=== PATIENT | female | born 1990 | race American Indian/Alaskan Native ===

== ENCOUNTER 2016-08-26 19:26 | Emergency (ER) | payer MEDICAID ==
[2016-08-26] MEDS ORDERED: TYLENOL PO ONE (20:03)
[2016-08-26 20:27] LABS: Basophils % (Auto) 0.9 % (0.0-1.8); Hematocrit 26.8 % (30.3-42.9); Mean Corpuscular HGB Conc 30 % (30-34); Platelet Count 477 K/mm3 (140-440); Red Blood Count 4.37 M/mm3 (3.65-5.03); White Blood Count 7.7 K/mm3 (4.5-11.0)
[2016-08-26 20:28] LABS: Mean Corpuscular Hemoglobin 18 pg (28-32); Mean Corpuscular Volume 61 fl (79-97); Red Cell Distribution Width 20.2 % (13.2-15.2)
[2016-08-26 20:44] LABS: Anion Gap 22 mmol/L; BUN/Creatinine Ratio 17.77; Blood Urea Nitrogen 16 mg/dL (7-17); Calcium 8.7 mg/dL (8.4-10.2); Carbon Dioxide 22 mmol/L (22-30); Chloride 95.4 mmol/L (98-107); Glucose 99 mg/dL (65-100); Potassium 4.1 mmol/L (3.6-5.0); Sodium 135 mmol/L (137-145)
[2016-08-27] MEDS ORDERED: PEPCID IV ONE (06:52)
[2016-08-27] MEDS ORDERED: ZOFRAN IV ONE (06:52)
[2016-08-27] MEDS ORDERED: NACL 0.9% 1000 ML 2,000 ML IV ONE (06:52)
[2016-08-27] MEDS ORDERED: ALUM-MAG HYDROX-SIMETH 200-200-20MG/5ML PO ONE (06:53)
--- NOTE | 2016-08-27 06:54 | Emergency Department Report ---
ED General Adult HPI - General Chief complaint: Chest Pain Stated complaint: CP/VOMITING Time Seen by Provider: 08/27/16 06:44 Source: patient Mode of arrival: Ambulatory Limitations: No Limitations - History of Present Illness Initial comments: This is a 26-year-old female. She is previously unknown to me. LMP August 03. Denies primary care doctor. Reports a past medical history of asthma, chronic anemia secondary to heavy menstruation. The patient presents to the ER with fever, chest pain, nausea and vomiting. Patient found to be febrile here in the emergency room. She did not know that she was experiencing fevers. Her main complaint is chest pain. It is central. It does not radiate to the back, arms and neck. It is associated with nausea and vomiting. Patient reports a few episodes of nonbloody, nonbilious emesis. There is no lower abdominal pain. There are no irritative or obstructive urinary symptoms. There is no leg pain. There is no leg swelling. No recent trips greater than 4 hours. No recent hospital admissions. + cough -: Gradual Location: chest Severity scale (0 -10): 7 Quality: aching Consistency: intermittent Improves with: none Worsens with: none Associated Symptoms: chest pain, cough, fever/chills, nausea/vomiting - Related Data Previous Rx's Medication Instructions Recorded Last Taken Type Vit/Iron Fumarate/FA 1 each PO QDAY #90 tablet 10/20/13 06/05/14 Rx [ Vitamin Tablet] Ferrous Sulfate [Feosol 325 MG tab] 325 mg PO BID #60 tablet 05/10/14 06/05/14 Rx Ferrous Sulfate [Feosol 325 MG tab] 325 mg PO TID #90 tablet 06/06/14 Unknown Rx Ibuprofen [Motrin 800 MG tab] 800 mg PO Q8H PRN #90 tablet 06/06/14 Unknown Rx oxyCODONE /ACETAMINOPHEN [Percocet 1 tab PO Q6HR PRN #30 tablet 06/06/14 Unknown Rx 5/325 mg] ALBUTEROL Inhaler [ProAir HFA 2 puff IH QID PRN #1 inhalation 03/09/15 Unknown Rx Inhaler] Prednisone [predniSONE 10 mg 10 mg PO .TAPER #1 tab.ds.pk 03/09/15 Unknown Rx (6-Day Pack, 21 Tabs)] Ketorolac [Toradol] 10 mg PO Q6H PRN #20 tablet 08/27/16 Unknown Rx Ondansetron [Zofran Odt] 4 mg PO QID PRN #20 tab.rapdis 08/27/16 Unknown Rx Allergies Allergy/AdvReac Type Severity Reaction Status Date / Time shellfish derived Allergy Swelling Verified 10/19/13 18:45 ED Review of Systems ROS: Stated complaint: CP/VOMITING Other details as noted in HPI Constitutional: fever ENT: as per HPI Respiratory: see HPI Cardiovascular: chest pain Gastrointestinal: nausea, vomiting Genitourinary: as per HPI Musculoskeletal: as per HPI Skin: as per HPI Neurological: as per HPI Psychiatric: as per HPI ED Past Medical Hx - Past Medical History Hx Hypertension: No Hx Congestive Heart Failure: No Hx Diabetes: No Hx Deep Vein Thrombosis: No Hx Renal Disease: No Hx Sickle Cell Disease: No Hx Seizures: No Hx Kidney Stones: Yes Hx Asthma: Yes (inhaler prn) Hx COPD: No Hx HIV: No - Surgical History Past Surgical History?: Yes Additional Surgical History: x2 - Social History Smoking Status: Never Smoker Substance Use Type: None - Medications Home Medications: Home Medications Medication Instructions Recorded Confirmed Last Taken Type Vit/Iron Fumarate/FA 1 each PO QDAY #90 tablet 10/20/13 06/05/14 Rx [ Vitamin Tablet] Ferrous Sulfate [Feosol 325 MG tab] 325 mg PO BID #60 tablet 05/10/14 06/05/14 06/05/14 Rx Ferrous Sulfate [Feosol 325 MG tab] 325 mg PO TID #90 tablet 06/06/14 Unknown Rx Ibuprofen [Motrin 800 MG tab] 800 mg PO Q8H PRN #90 tablet 06/06/14 Unknown Rx oxyCODONE /ACETAMINOPHEN [Percocet 1 tab PO Q6HR PRN #30 tablet 06/06/14 Unknown Rx 5/325 mg] ALBUTEROL Inhaler [ProAir HFA 2 puff IH QID PRN #1 inhalation 03/09/15 Unknown Rx Inhaler] Prednisone [predniSONE 10 mg 10 mg PO .TAPER #1 tab.ds.pk 03/09/15 Unknown Rx (6-Day Pack, 21 Tabs)] Ketorolac [Toradol] 10 mg PO Q6H PRN #20 tablet 08/27/16 Unknown Rx Ondansetron [Zofran Odt] 4 mg PO QID PRN #20 tab.rapdis 08/27/16 Unknown Rx ED Physical Exam - General Limitations: No Limitations General appearance: alert, in no apparent distress - Head Head exam: Present: atraumatic, normocephalic - Eye Eye exam: Present: normal appearance, EOMI. Absent: nystagmus - ENT ENT exam: Present: normal exam, normal orophraynx, mucous membranes moist, normal external ear exam - Neck Neck exam: Present: normal inspection, full ROM. Absent: tenderness, meningismus - Respiratory Respiratory exam: Present: normal lung sounds bilaterally. Absent: respiratory distress, wheezes, rales, rhonchi, stridor, chest wall tenderness - Cardiovascular Cardiovascular Exam: Present: normal rhythm, tachycardia, normal heart sounds. Absent: bradycardia, irregular rhythm, systolic murmur, diastolic murmur, rubs, gallop - GI/Abdominal GI/Abdominal exam: Present: soft, normal bowel sounds. Absent: distended, tenderness, guarding, rebound, rigid, pulsatile mass - Extremities Exam Extremities exam: Present: normal inspection, full ROM, normal capillary refill. Absent: tenderness, pedal edema, joint swelling, calf tenderness - Back Exam Back exam: Present: normal inspection, full ROM. Absent: tenderness, CVA tenderness (R), CVA tenderness (L), muscle spasm, paraspinal tenderness, vertebral tenderness - Neurological Exam Neurological exam: Present: alert, oriented X3, normal gait, other (Extraocular movements intact. Tongue midline. No facial droop. Facial sensation intact to light touch in the V1, V2, V3 distribution bilaterally. 5 and 5 strength in 4 extremities.. Sensation is intact to light touch in 4 extremities.). Absent : motor sensory deficit - Psychiatric Psychiatric exam: Present: normal affect, normal mood - Skin Skin exam: Present: warm, dry, intact, normal color. Absent: rash ED Course Vital Signs 08/26/16 08/27/16 08/27/16 19:56 03:40 08:46 Temperature 102.7 F H 99.9 F H 99.7 F H Pulse Rate 130 H 117 H 103 H Respiratory 18 18 16 Rate Blood Pressure 121/78 Blood Pressure 114/76 114/73 [Left] O2 Sat by Pulse 96 100 98 Oximetry 08/27/16 11:29 Temperature Pulse Rate 89 Respiratory 16 Rate Blood Pressure Blood Pressure 122/75 [Left] O2 Sat by Pulse 96 Oximetry - Reevaluation(s) Reevaluation #1: 08/27/16 08:02 differential diagnosis: Pneumonia, pericarditis, pleuritis, myocarditis, viral syndrome, influenza, pulmonary embolus Assessment and plan: 26-year-old female with chest pain, nausea and vomiting, acute febrile illness, EKG that demonstrates new left axis deviation, no pulmonary embolus or DVT risk factors, low risk by well 's criteria. She is not actively vomiting at this time. Her symptoms have been present for a few days. Troponins negative. Low risk by VERONICA score, low risk by heart score. We'll treat her symptomatically, given new left axis deviation, acute febrile illness without obvious source, a d-dimer sent to risk stratify the patient for pulmonary embolus. We will reassess after initial data points. Patient has chronic anemia, this is not new, worse or different. 08/27/16 10:43 Reevaluation #2: 08/27/16 10:39 Tachycardia resolved. Resting comfortably. Resting heart rate now [address] angiogram is negative for pulmonary embolus. Patient has had 3 negative troponins, large pneumonia excluded, large pulmonary embolus excluded, and she is now tolerating liquid feeds. Laboratory studies appear to be unremarkable. Given the objectively acquired information, it does not appear that the patient are's admission to the hospital at this time. She will be discharged with nausea medication, pain medication, instructions to follow up with local cardiology/primary care. She will be discharged at this time. Return precautions are extensively reviewed. ED Medical Decision Making - Lab Data Result diagrams: 08/26/16 20:08 08/26/16 20:08 Vital Signs 08/26/16 08/27/16 19:56 03:40 Temperature 102.7 F H 99.9 F H Pulse Rate 130 H 117 H Respiratory 18 18 Rate Blood Pressure 121/78 Blood Pressure 114/76 [Left] O2 Sat by Pulse 96 100 Oximetry Lab Results 08/26/16 08/26/16 08/26/16 Range/Units 20:08 20:08 23:07 WBC 7.7 (4.5-11.0) K/mm3 RBC 4.37 (3.65-5.03) M/mm3 Hgb 8.0 L (10.1-14.3) gm/dl Hct 26.8 L (30.3-42.9) % MCV 61 L (79-97) fl MCH 18 L (28-32) pg MCHC 30 (30-34) % RDW 20.2 H (13.2-15.2) % Plt Count 477 H (140-440) K/mm3 Lymph % (Auto) 30.7 (13.4-35.0) % [place] % (Auto) 12.3 H (0.0-7.3) % Eos % (Auto) 0.0 (0.0-4.3) % Baso % (Auto) 0.9 (0.0-1.8) % Lymph # 2.4 (1.2-5.4) K/mm3 [place] # 0.9 H (0.0-0.8) K/mm3 Eos # 0.0 (0.0-0.4) K/mm3 Baso # 0.1 (0.0-0.1) K/mm3 Seg Neutrophils % 56.1 (40.0-70.0) % Seg Neutrophils # 4.3 (1.8-7.7) K/mm3 PT (12.2-14.9) Sec. INR (0.87-1.13) Sodium 135 L (137-145) mmol/L Potassium 4.1 (3.6-5.0) mmol/L Chloride 95.4 L (98-107) mmol/L Carbon Dioxide 22 (22-30) mmol/L Anion Gap 22 mmol/L BUN 16 (7-17) mg/dL Creatinine 0.9 (0.7-1.2) mg/dL Estimated GFR > 60 ml/min BUN/Creatinine Ratio 17.77 % Glucose 99 (65-100) mg/dL Calcium 8.7 (8.4-10.2) mg/dL Total Bilirubin (0.1-1.2) mg/dL Direct Bilirubin (0-0.2) mg/dL AST (5-40) units/L ALT (7-56) units/L Alkaline Phosphatase (35-129) units/L Troponin T < 0.010 < 0.010 (0.00-0.029) ng/mL Albumin (3.9-5) g/dL Lipase (13-60) units/L HCG, Quant (0-4) mIU/mL Blood Type 08/27/16 08/27/16 08/27/16 Range/Units 02:22 07:05 07:05 WBC (4.5-11.0) K/mm3 RBC (3.65-5.03) M/mm3 Hgb (10.1-14.3) gm/dl Hct (30.3-42.9) % MCV (79-97) fl MCH (28-32) pg MCHC (30-34) % RDW (13.2-15.2) % Plt Count (140-440) K/mm3 Lymph % (Auto) (13.4-35.0) % [place] % (Auto) (0.0-7.3) % Eos % (Auto) (0.0-4.3) % Baso % (Auto) (0.0-1.8) % Lymph # (1.2-5.4) K/mm3 [place] # (0.0-0.8) K/mm3 Eos # (0.0-0.4) K/mm3 Baso # (0.0-0.1) K/mm3 Seg Neutrophils % (40.0-70.0) % Seg Neutrophils # (1.8-7.7) K/mm3 PT 13.9 (12.2-14.9) Sec. INR 1.08 (0.87-1.13) Sodium (137-145) mmol/L Potassium (3.6-5.0) mmol/L Chloride (98-107) mmol/L Carbon Dioxide (22-30) mmol/L Anion Gap mmol/L BUN (7-17) mg/dL Creatinine (0.7-1.2) mg/dL Estimated GFR ml/min BUN/Creatinine Ratio % Glucose (65-100) mg/dL Calcium (8.4-10.2) mg/dL Total Bilirubin 0.5 (0.1-1.2) mg/dL Direct Bilirubin < 0.2 (0-0.2) mg/dL AST 38 (5-40) units/L ALT 23 (7-56) units/L Alkaline Phosphatase 76 (35-129) units/L Troponin T < 0.010 (0.00-0.029) ng/mL Albumin 4.1 (3.9-5) g/dL Lipase 32 (13-60) units/L HCG, Quant (0-4) mIU/mL Blood Type 08/27/16 08/27/16 Range/Units 07:05 07:05 WBC (4.5-11.0) K/mm3 RBC (3.65-5.03) M/mm3 Hgb (10.1-14.3) gm/dl Hct (30.3-42.9) % MCV (79-97) fl MCH (28-32) pg MCHC (30-34) % RDW (13.2-15.2) % Plt Count (140-440) K/mm3 Lymph % (Auto) (13.4-35.0) % [place] % (Auto) (0.0-7.3) % Eos % (Auto) (0.0-4.3) % Baso % (Auto) (0.0-1.8) % Lymph # (1.2-5.4) K/mm3 [place] # (0.0-0.8) K/mm3 Eos # (0.0-0.4) K/mm3 Baso # (0.0-0.1) K/mm3 Seg Neutrophils % (40.0-70.0) % Seg Neutrophils # (1.8-7.7) K/mm3 PT (12.2-14.9) Sec. INR (0.87-1.13) Sodium (137-145) mmol/L Potassium (3.6-5.0) mmol/L Chloride (98-107) mmol/L Carbon Dioxide (22-30) mmol/L Anion Gap mmol/L BUN (7-17) mg/dL Creatinine (0.7-1.2) mg/dL Estimated GFR ml/min BUN/Creatinine Ratio % Glucose (65-100) mg/dL Calcium (8.4-10.2) mg/dL Total Bilirubin (0.1-1.2) mg/dL Direct Bilirubin (0-0.2) mg/dL AST (5-40) units/L ALT (7-56) units/L Alkaline Phosphatase (35-129) units/L Troponin T (0.00-0.029) ng/mL Albumin (3.9-5) g/dL Lipase (13-60) units/L HCG, Quant < 2 (0-4) mIU/mL Blood Type O POSITIVE - EKG Data -: EKG Interpreted by Me EKG shows normal: sinus rhythm - EKG Data 08/27/16 08:02 sinus tachycardia, 127 beats minute, left axis deviation which appears to be new, not morphologically consistent with STEMI, incomplete right bundle branch block. Repeat EKG demonstrates normal sinus, 84 bpm, persistent left axis deviation, poor r wave progression, unchanged from prior EKG September 2010. 08/27/16 11:06 - Radiology Data Radiology results: pending Critical care attestation.: If time is entered above; I have spent that time in minutes in the direct care of this critically ill patient, excluding procedure time. ED Disposition Clinical Impression: Chest pain, Nausea and vomiting, Acute febrile illness Disposition: DISCHARGED TO HOME OR SELFCARE Is pt being admited?: No Does the pt Need Aspirin: No Condition: Good Instructions: Chest Pain (ED), Costochondritis (ED) Additional Instructions: Take the pain medication, nausea medication as directed. Follow up with a primary care doctor or legal specialist within the next week. Dr. Ochoa is a local primary care doctor. Dr. Haddad is a local legal specialist. Rest and avoid heavy lifting. Take acetaminophen every 4 hours as needed for pain, this can be alternated with the prescribed ketorolac pain medication. Return to the ER right away with new pain, worsened pain, migration of pain, fevers or chills, nausea or vomiting, inability to tolerate liquid feeds. Prescriptions: Ketorolac [Toradol] 10 mg PO Q6H PRN #20 tablet PRN Reason: Pain Ondansetron [Zofran Odt] 4 mg PO QID PRN #20 tab.rapdis PRN Reason: Nausea Referrals: PRIMARY CARE, [Primary Care Provider] - 3-5 Days LAI OCHOA MD [Staff Physician] - 3-5 Days STEW HADDAD MD [Staff Physician] - 3-5 Days
[2016-08-27 07:51] LABS: Alanine Aminotransferase 23 units/L (7-56); Albumin 4.1 g/dL (3.9-5); Alkaline Phosphatase 76 units/L (35-129); Bilirubin,Total 0.5 mg/dL (0.1-1.2); Lipase 32 units/L (13-60)
[2016-08-27 07:56] LABS: Bilirubin,Direct < 0.2 mg/dL (0-0.2)
[2016-08-27 07:57] LABS: INR 1.08 (0.87-1.13)
[2016-08-27] MEDS ORDERED: TORADOL IV ONE (08:01)
[2016-08-27 08:36] LABS: Bacteria,Urine 1+ /HPF (Negative); Bilirubin,Urine NEG (Negative); Blood,Urine NEG (Negative); Ketones,Urine 20 mg/dL (Negative); Leukocyte Esterase,Urine NEG (Negative); Mucus,Urine 1+ /HPF; Nitrite,Urine NEG (Negative); Urobilinogen,Urine < 2.0 mg/dL (<2.0)
[2016-08-27 08:49] LABS: Albumin/Globulin Ratio 0.8 %; Total Protein 9.4 g/dL (6.3-8.2)
--- NOTE | 2016-08-27 08:55 | XRay Report ---
ROUTINE CHEST, TWO VIEWS: HISTORY: chest pain, fever, cough. The trachea, heart, mediastinal contour, lung cuadra and bony thorax are unremarkable. IMPRESSION: Unremarkable chest x-ray.
[2016-08-27] MEDS ORDERED: NACL ONE (09:21)
--- NOTE | 2016-08-27 10:16 | Cat Scan Report ---
CTA CHEST: History: Chest pain, fever. Technique: Helical CT following IV contrast. Pulmonary embolus protocol. Sagittal and coronal reformatted images. Rotational MIP images. Findings: Contrast bolus is limited. No large central pulmonary embolus. There is poor opacification and resolution of the distal, small pulmonary arteries. No definite PE is identified. The thyroid gland, tracheobronchial tree, esophagus, heart, pericardium, mediastinal vessels, lung cuadra and bony thorax are unremarkable. Impression: Slightly limited exam. No evidence for pulmonary embolus. Unremarkable CT chest with contrast.
[2016-08-27 11:29] VITALS: BP 122/75
== END 2016-08-27 11:31 | disposition home or self-care (01) ==
LOC: ED 19:26
DX: R07.9 Chest pain, unspecified (principal); R11.2 Nausea with vomiting, unspecified; R50.9 Fever, unspecified; J45.909 Unspecified asthma, uncomplicated
CPT/HCPCS: 36415; 71020; 71275; 80048; 80074; 81001; 83690; 84484; 84702; 85025; 85379; 85610; 86850; 86900; 86901; 87400; 93005; 93010; 96361; 96374; 96375; 99285; J1885; J2405; J7030; Q9967

== ENCOUNTER 2016-11-08 15:53 | Emergency (ER) | payer MEDICAID ==
[2016-11-08 16:41] LABS: Bacteria,Urine 2+ /HPF (Negative); Bilirubin,Urine NEG (Negative); Blood,Urine SM (Negative); Ketones,Urine NEG (Negative); Leukocyte Esterase,Urine SM (Negative); Mucus,Urine 3+ /HPF; Nitrite,Urine POS (Negative)
[2016-11-08 16:50] LABS: Alanine Aminotransferase 9 units/L (7-56); Alkaline Phosphatase 64 units/L (35-129); Anion Gap 18 mmol/L; Blood Urea Nitrogen 11 mg/dL (7-17); Calcium 9.2 mg/dL (8.4-10.2); Carbon Dioxide 25 mmol/L (22-30); Chloride 103.3 mmol/L (98-107); Glucose 92 mg/dL (65-100); Lipase 19 units/L (13-60); Potassium 4.5 mmol/L (3.6-5.0); Sodium 142 mmol/L (137-145); Total Protein 8.2 g/dL (6.3-8.2)
[2016-11-08 17:03] LABS: Basophils % (Auto) 0.9 % (0.0-1.8); Eosinophils % (Auto) 1.4 % (0.0-4.3); Mean Corpuscular HGB Conc 28 % (30-34); Platelet Count 502 K/mm3 (140-440); Red Blood Count 4.03 M/mm3 (3.65-5.03); Red Cell Distribution Width 18.7 % (13.2-15.2); White Blood Count 5.9 K/mm3 (4.5-11.0)
[2016-11-08 17:04] LABS: Hematocrit 24.7 % (30.3-42.9); Hemoglobin 6.8 gm/dl (10.1-14.3); Mean Corpuscular Hemoglobin 17 pg (28-32); Mean Corpuscular Volume 61 fl (79-97)
[2016-11-08] MEDS ORDERED: ZOFRAN IV ONE (22:05)
--- NOTE | 2016-11-08 22:05 | Emergency Department Report ---
HPI - General Chief Complaint: Abdominal Pain Time Seen by Provider: 11/08/16 21:46 - HPI HPI: This is a 26-year-old -[place] female presents emergency department complaint of a one-week history of upper abdominal discomfort. It is associated with some nausea and vomiting. Patient last had a menstrual cycle started on the fifth of this month and she says it finished today but she has not had any vaginal bleeding for about 24 hours. She denies any fever, back pain, dysuria, vaginal discharge. The abdominal pain is to the upper abdomen and does not radiate. She denies any shortness of breath, chest pain. She has a past medical history of anemia, asthma. She does not have a primary care physician or DEPUTY DIRECTOR. She has not taken anything for her symptoms prior to presentation. Looking back at the patient's labs she does appear to have some chronic anemia with her last hemoglobin being at 8 here at [facility]. She denies any other areas of bleeding. ED Past Medical Hx - Past Medical History Previous Medical History?: Yes Hx Hypertension: No Hx Congestive Heart Failure: No Hx Diabetes: No Hx Deep Vein Thrombosis: No Hx Renal Disease: No Hx Sickle Cell Disease: No Hx Seizures: No Hx Kidney Stones: Yes Hx Asthma: Yes (inhaler prn) Hx COPD: No Hx HIV: No - Surgical History Past Surgical History?: Yes Additional Surgical History: x2 - Social History Smoking Status: Never Smoker Substance Use Type: Alcohol, Non Opiate Pain - Medications Home Medications: Home Medications Medication Instructions Recorded Confirmed Last Taken Type Vit/Iron Fumarate/FA 1 each PO QDAY #90 tablet 10/20/13 06/05/14 Rx [ Vitamin Tablet] Ferrous Sulfate [Feosol 325 MG tab] 325 mg PO BID #60 tablet 05/10/14 06/05/14 06/05/14 Rx Ferrous Sulfate [Feosol 325 MG tab] 325 mg PO TID #90 tablet 06/06/14 Unknown Rx Ibuprofen [Motrin 800 MG tab] 800 mg PO Q8H PRN #90 tablet 06/06/14 Unknown Rx oxyCODONE /ACETAMINOPHEN [Percocet 1 tab PO Q6HR PRN #30 tablet 06/06/14 Unknown Rx 5/325 mg] ALBUTEROL Inhaler [ProAir HFA 2 puff IH QID PRN #1 inhalation 03/09/15 Unknown Rx Inhaler] Prednisone [predniSONE 10 mg 10 mg PO .TAPER #1 tab.ds.pk 03/09/15 Unknown Rx (6-Day Pack, 21 Tabs)] Ketorolac [Toradol] 10 mg PO Q6H PRN #20 tablet 08/27/16 Unknown Rx Docusate Sodium [Colace] 100 mg PO BID PRN #16 capsule 11/09/16 Unknown Rx Ondansetron [Zofran Odt] 4 mg PO Q8H PRN #10 tab.rapdis 11/09/16 Unknown Rx ED Review of Systems ROS: Stated complaint: ABD PAIN X 1 WEEK Other details as noted in HPI Comment: All other systems reviewed and negative Constitutional: denies: chills, fever Eyes: denies: eye pain, eye discharge, vision change ENT: denies: ear pain, throat pain Respiratory: denies: cough, shortness of breath, wheezing Cardiovascular: denies: chest pain, palpitations Gastrointestinal: abdominal pain, nausea, vomiting Genitourinary: denies: urgency, dysuria, discharge Musculoskeletal: denies: back pain, joint swelling, arthralgia Skin: denies: rash, lesions Neurological: denies: headache, weakness, paresthesias Physical Exam - Physical Exam Vital Signs: Vital Signs 11/08/16 16:12 Temperature 98.5 F Pulse Rate 97 H Respiratory 18 Rate Blood Pressure 103/61 O2 Sat by Pulse 98 Oximetry Physical Exam: GENERAL: The patient is well-developed well-nourished. HEENT: Normocephalic. Atraumatic. Extraocular motions are intact. Patient has moist mucous membranes. Pupils equal reactive to light bilateral. NECK: Supple. Trachea is midline. CHEST/LUNGS: Clear to auscultation. There is no respiratory distress noted. HEART/CARDIOVASCULAR: Regular. There is no tachycardia. There is no gallop rub or murmur. ABDOMEN: Abdomen is soft. Mild tenderness patient to the upper quadrants of the abdomen. No guarding rebound tenderness. No peritoneal signs. Patient has normal bowel sounds. There is no abdominal distention. SKIN: Skin is warm and dry. NEURO: The patient is awake, alert, and oriented. The patient is cooperative. The patient has no focal neurologic deficits. The patient has normal speech. MUSCULOSKELETAL: There is no tenderness or deformity. There is no limitation range of motion. There is no evidence of acute injury. ED Course Vital Signs 11/08/16 16:12 Temperature 98.5 F Pulse Rate 97 H Respiratory 18 Rate Blood Pressure 103/61 O2 Sat by Pulse 98 Oximetry ED Medical Decision Making - Lab Data Result diagrams: 11/08/16 16:19 11/08/16 16:19 - Radiology Data Radiology results: report reviewed Abdominal ultrasound does not show any acute process and is a normal examination. Abdominal x-ray shows some mild upper abdominal ileus but no signs of any bowel obstruction. A moderate amount of stool seen throughout the intestines. - Medical Decision Making 26-year-old female presents to the emergency department with a one-week history of some upper abdominal discomfort and recently some nausea with occasional vomiting. Patient's belly labs are normal including bilirubin, lipase and LFTs. There is no leukocytosis. There is no urinary tract infection and the patient is not . She does have significant anemia with a hemoglobin of 6.8. The patient had only a few days of vaginal bleeding for her menstrual cycle and it was not any heavier than usual and there is no other source of bleeding. I reviewed her previous labs and the patient had a hemoglobin of 8 the last time she was here. She has also been on iron in the past and may have iron deficiency anemia. Abdominal x-ray was done that was read by radiology as a possible mild ileus but no bowel obstruction and a moderate amount of stool throughout the colon. An abdominal ultrasound did not show any acute process and was read as a normal examination. The patient was given 1 unit of packed red blood cells. She was reevaluated multiple times of multiple hours and says she is feeling improved. She'll be given referrals for primary care, gastroenterology and she'll be given stool softeners. She will return to the ER with any worsening of her symptoms or any acute distress. - Differential Diagnosis cholecystitis, cholelithiasis, pancreatitis, gastritis Critical Care Time: No Critical care attestation.: If time is entered above; I have spent that time in minutes in the direct care of this critically ill patient, excluding procedure time. ED Disposition Clinical Impression: Anemia Qualifiers: Anemia type: unspecified type Qualified Code(s): D64.9 - Anemia, unspecified Abdominal pain Qualifiers: Abdominal location: upper abdomen, unspecified Qualified Code(s): R10.10 - Upper abdominal pain, unspecified Disposition: DC-01 TO HOME OR SELFCARE Is pt being admited?: No Condition: Stable Instructions: Abdominal Pain (ED), Anemia (ED), Iron Rich Diet (ED) Additional Instructions: Please follow-up with a primary care physician in the next few days. I have given referral for a local cardio clinician, Dr. maldonado, in case she would like to follow up regarding her abdominal pain. Return to the emergency department with any worsening of your symptoms or any acute distress. Prescriptions: Docusate Sodium [Colace] 100 mg PO BID PRN #16 capsule PRN Reason: Constipation Ondansetron [Zofran Odt] 4 mg PO Q8H PRN #10 tab.rapdis PRN Reason: Nausea Referrals: PRIMARY CARE, [Primary Care Provider] - 3-5 Days KELLI GOLDSMITH MD [Staff Physician] - 3-5 Days DEANNA MALDONADO MD [Staff Physician] - 3-5 Days [facility] [Outside] - 3-5 Days Time of Disposition: 01:47
--- NOTE | 2016-11-08 22:31 | XRay Report ---
FINAL REPORT EXAM: XR ABDOMEN 2V HISTORY: abd pain COMPARISON: None available. FINDINGS: AP views of the abdomen obtained. Moderate stool in the colon. Mild gas filled prominence of bowel loops in the upper abdomen concerning for mild ileus. No bowel obstruction. No gross pathological calcifications. IMPRESSION: Probable mild ileus in the upper abdomen. Moderate stool in the colon. No bowel obstruction.
[2016-11-08] MEDS ORDERED: NACL 0.9% 500 ML 500 ML IV ONE (23:03)
--- NOTE | 2016-11-08 23:10 | Ultrasound Report ---
FINAL REPORT EXAM: US ABDOMEN LIMITED HISTORY: RUQ and epigastric pain COMPARISON: None available. TECHNIQUE: Several real-time grayscale and color Doppler images were obtained. FINDINGS: No shadowing gallstones. No gallbladder wall thickening. The common bile duct measures 3 millimeters within normal limits. Visualized aorta is normal in caliber. Visualized portions of the liver and spleen are homogeneous in echogenicity. Right kidney measures 11.5 centimeters in length. No hydronephrosis. IMPRESSION: No cholelithiasis or biliary dilatation.
[2016-11-09 01:50] VITALS: BP 107/59
== END 2016-11-09 03:04 | disposition home or self-care (01) ==
LOC: ED 15:53
DX: D64.9 Anemia, unspecified (principal); R10.10 Upper abdominal pain, unspecified; J45.909 Unspecified asthma, uncomplicated; Z91.013 Allergy to seafood
CPT/HCPCS: 36415; 36430; 74020; 76705; 80053; 81001; 81025; 83690; 85025; 86850; 86900; 86901; 86920; 96361; 96374; 99285; J2405; J7040; P9016

== ENCOUNTER 2021-09-01 16:10 | Emergency (ER) | payer MEDICAID ==
--- NOTE | 2021-09-01 21:58 | Emergency Department Report ---
ED General Adult HPI - General Chief complaint: Earache Stated complaint: LT EAR PAIN Source: patient Mode of arrival: Ambulatory Limitations: No Limitations - History of Present Illness Initial comments: Patient is a 31-year-old -[place] female with a history of asthma who presents to the ED with complaint of acute onset persistent left ear pain for the last 1 week. Patient states that she has been taking [id number] medications with no relief. Patient states that her left ear is muffled with decreased hearing acuity. Patient states that the pain has worsened in the last 3 days such that she is unable to sleep because of worsening pain. Patient denies dizziness, syncope, headache, chest pain or shortness of breath, nausea and vomiting, sore throat, nasal and sinus congestion, fever and chills. MD Complaint: Left ear pain -: Sudden, week(s) (1) Location: face (left ear) Radiation: non-radiation Severity scale (0 -10): 7 Quality: aching, sharp Consistency: constant Improves with: none Worsens with: none Associated Symptoms: denies other symptoms. denies: confusion, chest pain, cough, diaphoresis, fever/chills, headaches, loss of appetite, malaise, nausea/vomiting, seizure, shortness of breath, syncope, weakness Treatments Prior to Arrival: none - Related Data Previous Rx's Medication Instructions Recorded Last Taken Type Vit/Iron Fum/Folic AC 1 each PO QDAY #90 tablet 10/20/13 06/05/14 Rx [ Vitamin Tablet] Ferrous Sulfate [Feosol 325 MG tab] 325 mg PO BID #60 tablet 05/10/14 06/05/14 Rx Ferrous Sulfate [Feosol 325 MG tab] 325 mg PO TID #90 tablet 06/06/14 Unknown Rx Ibuprofen [Motrin 800 MG tab] 800 mg PO Q8H PRN #90 tablet 06/06/14 Unknown Rx oxyCODONE /ACETAMINOPHEN [Percocet 1 tab PO Q6HR PRN #30 tablet 06/06/14 Unknown Rx 5/325 mg] Albuterol Mdi (or & Nicu Only) 2 puff IH QID PRN #1 inhalation 03/09/15 Unknown Rx [ProAir HFA Inhaler] Prednisone [predniSONE 10 mg 10 mg PO .TAPER #1 tab.ds.pk 03/09/15 Unknown Rx (6-Day Pack, 21 Tabs)] Ketorolac [Toradol] 10 mg PO Q6H PRN #20 tablet 08/27/16 Unknown Rx Docusate Sodium [Colace] 100 mg PO BID PRN #16 capsule 11/09/16 Unknown Rx Ondansetron [Zofran Odt] 4 mg PO Q8H PRN #10 tab.rapdis 11/09/16 Unknown Rx Amoxicillin/Potassium Clav 1 each PO Q12H #20 tab 09/01/21 Unknown Rx [Augmentin 875-125 Tablet] Ibuprofen [Motrin] 800 mg PO Q8HR PRN #30 tablet 09/01/21 Unknown Rx Ofloxacin 0.3% [Floxin 0.3% Otic] 2 drops OT DAILY #1 bottle 09/01/21 Unknown Rx Allergies Allergy/AdvReac Type Severity Reaction Status Date / Time shellfish derived Allergy Swelling Verified 09/01/21 18:18 ED Review of Systems ROS: Stated complaint: LT EAR PAIN Other details as noted in HPI Constitutional: denies: chills, fever Eyes: denies: eye pain, eye discharge, vision change ENT: ear pain (left ear pain). denies: throat pain Respiratory: denies: cough, shortness of breath, wheezing Cardiovascular: denies: chest pain, palpitations Endocrine: no symptoms reported Gastrointestinal: denies: abdominal pain, nausea, vomiting, diarrhea Genitourinary: denies: urgency, dysuria, discharge Musculoskeletal: denies: back pain, joint swelling, arthralgia Skin: denies: rash, lesions Neurological: denies: headache, weakness, paresthesias Psychiatric: denies: anxiety, depression Hematological/Lymphatic: denies: easy bleeding, easy bruising ED Past Medical Hx - Past Medical History Hx Hypertension: No Hx Congestive Heart Failure: No Hx Diabetes: No Hx Deep Vein Thrombosis: No Hx Renal Disease: No Hx Sickle Cell Disease: No Hx Seizures: No Hx Kidney Stones: Yes Hx Asthma: Yes (inhaler prn) Hx COPD: No Hx HIV: No - Surgical History Additional Surgical History: x2 - Social History Smoking Status: Never Smoker Substance Use Type: Alcohol, Non Opiate Pain - Medications Home Medications: Home Medications Medication Instructions Recorded Confirmed Last Taken Type Vit/Iron Fum/Folic AC 1 each PO QDAY #90 tablet 10/20/13 06/05/14 06/05/14 Rx [ Vitamin Tablet] Ferrous Sulfate [Feosol 325 MG tab] 325 mg PO BID #60 tablet 05/10/14 06/05/14 06/05/14 Rx Ferrous Sulfate [Feosol 325 MG tab] 325 mg PO TID #90 tablet 06/06/14 Unknown Rx Ibuprofen [Motrin 800 MG tab] 800 mg PO Q8H PRN #90 tablet 06/06/14 Unknown Rx oxyCODONE /ACETAMINOPHEN [Percocet 1 tab PO Q6HR PRN #30 tablet 06/06/14 Unknown Rx 5/325 mg] Albuterol Mdi (or & Nicu Only) 2 puff IH QID PRN #1 inhalation 03/09/15 Unknown Rx [ProAir HFA Inhaler] Prednisone [predniSONE 10 mg 10 mg PO .TAPER #1 tab.ds.pk 03/09/15 Unknown Rx (6-Day Pack, 21 Tabs)] Ketorolac [Toradol] 10 mg PO Q6H PRN #20 tablet 08/27/16 Unknown Rx Docusate Sodium [Colace] 100 mg PO BID PRN #16 capsule 11/09/16 Unknown Rx Ondansetron [Zofran Odt] 4 mg PO Q8H PRN #10 tab.rapdis 11/09/16 Unknown Rx Amoxicillin/Potassium Clav 1 each PO Q12H #20 tab 09/01/21 Unknown Rx [Augmentin 875-125 Tablet] Ibuprofen [Motrin] 800 mg PO Q8HR PRN #30 tablet 09/01/21 Unknown Rx Ofloxacin 0.3% [Floxin 0.3% Otic] 2 drops OT DAILY #1 bottle 09/01/21 Unknown Rx ED Physical Exam - General Limitations: No Limitations General appearance: alert, in no apparent distress - Head Head exam: Present: atraumatic, normocephalic - Eye Eye exam: Present: normal appearance, PERRL, EOMI Pupils: Present: normal accommodation - ENT ENT exam: Present: mucous membranes moist, TM's normal bilaterally, normal external ear exam, other (Mild erythematous bulging left tympanic) - Neck Neck exam: Present: normal inspection, full ROM. Absent: tenderness, meningismus - Respiratory Respiratory exam: Present: normal lung sounds bilaterally. Absent: respiratory distress, wheezes, rales, rhonchi, chest wall tenderness, accessory muscle use, decreased breath sounds, prolonged expiratory - Cardiovascular Cardiovascular Exam: Present: regular rate, normal rhythm, normal heart sounds. Absent: systolic murmur, diastolic murmur, rubs, gallop - GI/Abdominal GI/Abdominal exam: Present: soft, normal bowel sounds. Absent: tenderness, guarding, rebound, hyperactive bowel sounds, hypoactive bowel sounds, organomegaly - Extremities Exam Extremities exam: Present: normal inspection, full ROM, normal capillary refill. Absent: tenderness - Back Exam Back exam: Present: normal inspection, full ROM. Absent: tenderness, CVA tenderness (R), CVA tenderness (L), muscle spasm, paraspinal tenderness, vertebral tenderness - Neurological Exam Neurological exam: Present: alert, oriented X3, CN II-XII intact, normal gait, reflexes normal - Psychiatric Psychiatric exam: Present: normal affect, normal mood - Skin Skin exam: Present: warm, dry, intact, normal color. Absent: rash ED Course Vital Signs 09/01/21 18:17 Temperature 98.6 F Pulse Rate 84 Respiratory 15 Rate Blood Pressure 122/91 O2 Sat by Pulse 100 Oximetry ED Medical Decision Making - Medical Decision Making This is a 31-year-old -[place] female with a history of asthma who presents to the ED with complaint of acute onset persistent left ear pain for the last 1 week. Patient states that she has been taking [id number] medications with no relief. Patient states that her left ear is muffled with decreased hearing acuity. Patient states that the pain has worsened in the last 3 days such that she is unable to sleep because of worsening pain. In the ED, patient is alert and oriented x3 and is not in distress. Based on the history and physical exam findings, the patient was discharged home on antibiotics and pain medications and advised to follow-up with her primary care physician in 7 to 10 days for reevaluation or return to the ED immediately if symptoms get worse. - Differential Diagnosis Otitis media; otitis externa; Critical care attestation.: If time is entered above; I have spent that time in minutes in the direct care of this critically ill patient, excluding procedure time. ED Disposition Clinical Impression: Acute otitis media with effusion of left ear Disposition: HOME / SELF CARE / HOMELESS Is pt being admited?: No Does the pt Need Aspirin: No Condition: Stable Instructions: Otitis Media (ED), Otitis Media, Adult, [id number], Ear Drops, Adult, [id number] Additional Instructions: Take medication with food, drink plenty fluids and follow-up with your primary care physician in 7 to 10 days for reevaluation. Return to the ED immediately if symptoms get worse Prescriptions: Amoxicillin/Potassium Clav [Augmentin 875-125 Tablet] 1 each PO Q12H #20 tab Ofloxacin 0.3% [Floxin 0.3% Otic] 2 drops OT DAILY #1 bottle Ibuprofen [Motrin] 800 mg PO Q8HR PRN #30 tablet PRN Reason: Pain , Severe (7-10) Referrals: MAICO ZELAYA MD [Staff Physician] - 7-10 days Time of Disposition: 22:01 Print Language: SWEDISH
[2021-09-01 22:57] VITALS: BP 118/80
== END 2021-09-01 22:58 | disposition home or self-care (01) ==
LOC: ED 16:10
DX: H66.92 Otitis media, unspecified, left ear (principal); N20.0 Calculus of kidney; J45.909 Unspecified asthma, uncomplicated; Z91.013 Allergy to seafood
CPT/HCPCS: 99282

== ENCOUNTER 2021-12-24 09:09 | Emergency (ER) | payer MEDICAID ==
[2021-12-24] MEDS ORDERED: TETANUS,DIPH,PERTUSS(ACELL) VACCINE 0.5 ML SYRINGE IM ONE (09:51)
[2021-12-24 09:52] VITALS: BP 127/77
--- NOTE | 2021-12-24 09:52 | Emergency Department Report ---
Abscess Boil HPI - HPI Stated Complaint: SPIDER BITE Time Seen by Provider: 12/24/21 09:48 Duration: >1 Week Location: Lower Extremity Severity: Mild History: Yes Pain, Yes Purulent Drainage, Yes Insect Bite, No Fever, No Numbness, No Foreign Body, No Previous History HPI: 31 yo comes in with bite from insect on left thigh. tdap 7 years ago Home Medications: Previous Rx's Medication Instructions Recorded Last Taken Type Vit/Iron Fum/Folic AC 1 each PO QDAY #90 tablet 10/20/13 06/05/14 Rx [ Vitamin Tablet] Ferrous Sulfate [Feosol 325 MG tab] 325 mg PO BID #60 tablet 05/10/14 06/05/14 Rx Ferrous Sulfate [Feosol 325 MG tab] 325 mg PO TID #90 tablet 06/06/14 Unknown Rx Ibuprofen [Motrin 800 MG tab] 800 mg PO Q8H PRN #90 tablet 06/06/14 Unknown Rx oxyCODONE /ACETAMINOPHEN [Percocet 1 tab PO Q6HR PRN #30 tablet 06/06/14 Unknown Rx 5/325 mg] Albuterol Mdi (or & Nicu Only) 2 puff IH QID PRN #1 inhalation 03/09/15 Unknown Rx [ProAir HFA Inhaler] Prednisone [predniSONE 10 mg 10 mg PO .TAPER #1 tab.ds.pk 03/09/15 Unknown Rx (6-Day Pack, 21 Tabs)] Ketorolac [Toradol] 10 mg PO Q6H PRN #20 tablet 08/27/16 Unknown Rx Docusate Sodium [Colace] 100 mg PO BID PRN #16 capsule 11/09/16 Unknown Rx Ondansetron [Zofran Odt] 4 mg PO Q8H PRN #10 tab.rapdis 11/09/16 Unknown Rx Amoxicillin/Potassium Clav 1 each PO Q12H #20 tab 09/01/21 Unknown Rx [Augmentin 875-125 Tablet] Ibuprofen [Motrin] 800 mg PO Q8HR PRN #30 tablet 09/01/21 Unknown Rx Ofloxacin 0.3% [Floxin 0.3% Otic] 2 drops OT DAILY #1 bottle 09/01/21 Unknown Rx cephALEXin [Keflex] 500 mg PO Q12HR #20 cap 12/24/21 Unknown Rx Allergies/Adverse Reactions: Allergies Allergy/AdvReac Type Severity Reaction Status Date / Time shellfish derived Allergy Swelling Verified 09/01/21 18:18 ED Review of Systems ROS: Stated complaint: SPIDER BITE Other details as noted in HPI Comment: All other systems reviewed and negative ED Past Medical Hx - Past Medical History Previous Medical History?: Yes Hx Hypertension: No Hx Congestive Heart Failure: No Hx Diabetes: No Hx Deep Vein Thrombosis: No Hx Renal Disease: No Hx Sickle Cell Disease: No Hx Seizures: No Hx Kidney Stones: Yes Hx Asthma: Yes (inhaler prn) Hx COPD: No Hx HIV: No - Surgical History Past Surgical History?: Yes Additional Surgical History: x2 - Family History Family history: no significant - Social History Smoking Status: Never Smoker Substance Use Type: Alcohol, Non Opiate Pain - Medications Home Medications: Home Medications Medication Instructions Recorded Confirmed Last Taken Type Vit/Iron Fum/Folic AC 1 each PO QDAY #90 tablet 10/20/13 06/05/14 06/05/14 Rx [ Vitamin Tablet] Ferrous Sulfate [Feosol 325 MG tab] 325 mg PO BID #60 tablet 05/10/14 06/05/14 06/05/14 Rx Ferrous Sulfate [Feosol 325 MG tab] 325 mg PO TID #90 tablet 06/06/14 Unknown Rx Ibuprofen [Motrin 800 MG tab] 800 mg PO Q8H PRN #90 tablet 06/06/14 Unknown Rx oxyCODONE /ACETAMINOPHEN [Percocet 1 tab PO Q6HR PRN #30 tablet 06/06/14 Unknown Rx 5/325 mg] Albuterol Mdi (or & Nicu Only) 2 puff IH QID PRN #1 inhalation 03/09/15 Unknown Rx [ProAir HFA Inhaler] Prednisone [predniSONE 10 mg 10 mg PO .TAPER #1 tab.ds.pk 03/09/15 Unknown Rx (6-Day Pack, 21 Tabs)] Ketorolac [Toradol] 10 mg PO Q6H PRN #20 tablet 08/27/16 Unknown Rx Docusate Sodium [Colace] 100 mg PO BID PRN #16 capsule 11/09/16 Unknown Rx Ondansetron [Zofran Odt] 4 mg PO Q8H PRN #10 tab.rapdis 11/09/16 Unknown Rx Amoxicillin/Potassium Clav 1 each PO Q12H #20 tab 09/01/21 Unknown Rx [Augmentin 875-125 Tablet] Ibuprofen [Motrin] 800 mg PO Q8HR PRN #30 tablet 09/01/21 Unknown Rx Ofloxacin 0.3% [Floxin 0.3% Otic] 2 drops OT DAILY #1 bottle 09/01/21 Unknown Rx cephALEXin [Keflex] 500 mg PO Q12HR #20 cap 12/24/21 Unknown Rx ED Abscess Boil Physical Exam - Exam General: Vital signs noted. No distress. Alert and acting appropriately. Exam: Yes Tenderness, Yes Surrounding Cellulites/Erythema, Yes Normal Neurologic Exam, Yes Normal Circulation, No Fluctuance, No Lymphangitis, No Crepitation, No Heart Murmur Critical care attestation.: If time is entered above; I have spent that time in minutes in the direct care of this critically ill patient, excluding procedure time. ED Medical Decision Making - Medical Decision Making Patient has insect bite on the inside of thigh. There is surrounding erythema. The wound is open and draining. She has no fever or chills. She is ambulatory. She is neurovascularly intact. Wound care provided. Patient being discharged home with discharge plan of care including diet, activity, medications and follow-up. She verbalizes understanding of plan of care. Vital Signs 12/24/21 12/24/21 09:49 10:42 Temperature 98.6 F Pulse Rate 91 H 91 H Respiratory 14 14 Rate Blood Pressure 127/77 Blood Pressure 127/77 [Right] O2 Sat by Pulse 100 100 Oximetry ED Disposition Clinical Impression: Insect bite with surrounding cellulitis Insect bite Qualifiers: Encounter type: initial encounter Disposition: HOME / SELF CARE / HOMELESS Is pt being admited?: No Does the pt Need Aspirin: No Condition: Stable Instructions: Spider Bite, [id number] Additional Instructions: motrin or tylenol for pain med as ordered today until gone warm compresses with epsom salts follow up with pcp next week referral below diet and activity as tolerated Prescriptions: cephALEXin [Keflex] 500 mg PO Q12HR #20 cap Referrals: MAICO ZELAYA MD [Primary Care Provider] - 3-5 Days Forms: Work/School Release Form(ED) Time of Disposition: 09:50
== END 2021-12-24 10:42 | disposition home or self-care (01) ==
LOC: ED 09:09
DX: S70.362A Insect bite (nonvenomous), left thigh, initial encounter (principal); W57.XXXA Bitten or stung by nonvenomous insect and other nonvenomous arthropods, initial encounter; Y93.89 Activity, other specified; Y92.89 Other specified places as the place of occurrence of the external cause; Y99.8 Other external cause status; L03.116 Cellulitis of left lower limb; Z87.442 Personal history of urinary calculi; J45.909 Unspecified asthma, uncomplicated; Z98.890 Other specified postprocedural states; Z91.013 Allergy to seafood
CPT/HCPCS: 90471; 90715; 99282